=== PATIENT | male | born 1975 | race Caucasian/White ===

== ENCOUNTER 2021-06-10 10:46 | Emergency (ER) | payer OTHER, SELFPAY ==
--- NOTE | ~2021-06-10 | XR_ITS ---
XR wrist RT min 3V DATE: 06/10/2021 11:15 INDICATION: Punched wall. Right hand pain TECHNIQUE: 4 views COMPARISON: 06/10/2021 right hand FINDINGS: Lucency is noted at the medial aspect of the hamate bone. Fracture is not excluded. Cannot exclude subluxation or dislocation of the fifth carpometacarpal joint. CT evaluation of the right wri st is recommended for more definitive evaluation. IMPRESSION: CT) examination is recommended with particular attention to the hamate bone and base of t he proximal phalanx of fifth bone to evaluate for fracture and/or dislocation Reviewed, dictated and finalized at [facility]. Reviewed, dictated and finalized at location A. IMPRESSION: CT) examination is recommended with particular attention to the ham ate bone and base of the proximal phalanx of fifth bone to evaluate for fractur e and/or dislocation
--- NOTE | ~2021-06-10 | XR_ITS ---
XR hand RT min 3V DATE: 06/10/2021 11:01 INDICATION: Punched wall. Right hand pain and swelling. TECHNIQUE: 3 views COMPARISON: None FINDINGS: There is suggestion of fracture of the hamate bone and/or base of the fifth metacarpal bone . 4 view right wrist radiographic examination is recommended. No other fracture is evident. IMPRESSION: Suggestion of fracture involving the hamate bone and/or base of the fifth metacarpal bone Reviewed, dictated and finalized at location A.
--- NOTE | 2021-06-10 10:54 | ED.UPPEXIN ---
HPI - Extremity Injury (Upper) General Chief Complaint: Extremity Injury, Upper Stated Complaint: rt hand injury History of Present Illness HPI narrative: This a 45 year old Iranian that come in today because last night he punched a wall and his right hand is hurting and he want to make sure that it is not broken. Patient states that he palm of his hand began to swell today and even though he feel no moveable bone. Related Data Allergies Allergy/AdvReac Type Severity Reaction Status Date / Time cat dander Allergy Unknown Asthma Verified 11/21/17 21:20 grass pollen Allergy Unknown Asthma Verified 11/21/17 21:20 mold Allergy Unknown Asthma Verified 11/21/17 21:20 oak Allergy Unknown Asthma Verified 11/21/17 21:20 Penicillins Allergy Unknown Verified 11/21/17 21:20 potassium chloride Allergy Unknown Asthma Verified 11/21/17 21:20 Sulfa (Sulfonamide Allergy Unknown assumed Verified 11/21/17 21:20 Antibiotics) because of fam hx Review of Systems Review of Systems: Narrative: CONSTITUTIONAL: Denies fever, chills, or sweats. EYES: Denies visual changes, redness, or discharge. ENT: Denies rhinorrhea, congestion, sore throat, or otalgia. CARDIOVASCULAR:Denies chest pain, palpitations, or edema. RESPIRATORY: Denies cough or dyspnea. GASTROINTESTINAL: Denies abdominal pain, nausea, vomiting, or diarrhea. GENITOURINARY: Denies dysuria or hematuria. SKIN:[Denies rash or itching. MUSCULOSKELETAL:Denies back pain, joint pain, or myalgia. right hand pain with swelling and and abrasion. NEUROLOGIC: Denies headache, numbness, or weakness. PSYCHIATRIC:Denies anxiety or depression [facility] Past Medical History Medical History (Updated 06/10/21 @ 11:20 by Minnie Chung NP) Abnormal results of liver function studies (12/09/18) Asthma, mild intermittent Bruxism (teeth grinding) Chondromalacia of patella, left Family History Family History Father Family history of osteoporosis Family history of heart disease in male family member before age 55 Mother Family history of irritable bowel syndrome Family history of seizure disorder Social History Social History Smoking status: Never smoker Alcohol intake: current Comments At time as signature, I have reviewed and agree with nursing past medical, social, surgical and family history. Please see nursing chart for further information. There is no relevant family history pertinent to the presenting complaint. Exam Narrative: Exam Narrative: GENERAL:Well-appearing, well-nourished, and in no acute distress. HEAD:Normocephalic, atraumatic. EYES: PERRLA and EOMI. ENT: Nares clear, no rhinorrhea or epistaxis. Mucous membranes moist. NECK: Supple. CHEST: Clear to auscultation. No respiratory distress. HEART: Regular rate and rhythm. No murmur heard. Normal peripheral pulses. ABDOMEN: Soft, nontender, nondistended, normal active bowel sounds. EXTREMITIES: decreased range of motion due to pain. Palmar right hand swelling edema with some bruising noted abrasion on bilateral hands . SKIN: Warm, dry, no rash. NEURO: No focal deficits. Alert and oriented x3. Course [employer] Physician Supervision Patient returned and had a OCL placed on hand until he is able to see Ortho Vital Signs Vital signs: Vital Signs Temperature 98.6 F 06/10/21 11:01 Pulse Rate 88 06/10/21 11:01 Respiratory Rate 16 06/10/21 11:01 Blood Pressure 137/90 06/10/21 11:01 Pulse Oximetry 99 06/10/21 11:01 Temperature 98.6 F 06/10/21 11:01 Pulse Rate 88 06/10/21 11:01 Respiratory Rate 16 06/10/21 11:01 Blood Pressure 137/90 06/10/21 11:01 Pulse Oximetry 99 06/10/21 11:01 MDM - Extremity Injury (Upper) Differential Diagnosis Differential diagnosis: Likely sprain and strain of wrist, fracture of wrist, dislocation of finger and fracture of hand
[2021-06-10 11:01] VITALS: BP 137/90; PULSE 88; RESP 16; TEMP 37; O2SAT 99
== END 2021-06-10 11:52 | disposition home or self-care (01) ==
PROVIDERS: Emergency Provider Nurse Practitioner Family; PCP Family Medicine
DX: S62.144A Nondisplaced fracture of body of hamate [unciform] bone, right wrist, initial encounter for closed fracture (principal); S62.306A Unspecified fracture of fifth metacarpal bone, right hand, initial encounter for closed fracture; W22.8XXA Striking against or struck by other objects, initial encounter; J45.909 Unspecified asthma, uncomplicated; M22.42 Chondromalacia patellae, left knee
CPT/HCPCS: 29125; 73110; 73130; 99213; 99214; G0463

== ENCOUNTER → 2021-09-05 08:19 | Outpatient (CLI) | payer OTHER, SELFPAY ==
--- NOTE | ~2021-09-05 | XR_ITS ---
EXAMINATION: XR wrist RT min 3V DATE: 09/05/2021 08:32 INDICATION: Right wrist pain TECHNIQUE: Posteroanterior, ulnar deviation, oblique, and lateral views of the right wrist were obtai alisha. COMPARISON: 06/10/2021 FINDINGS: Interval internal fixation of a fracture of the hamate with 3 compression screws. One of the compress ion screw appears appropriately positioned extending from the dorsal aspect of the body of the hamate palmarly into the hook of the hamate. There are 2 additional screws which appear to extend into the soft tissues ulnar to the hook of the hamate. There is significant lucency surrounding the heads of o ne of the screws which is likely loose. The fracture plane extending across the base of the hamate wh ich can be seen on outside institution CT is not clearly visualized on the current or prior radiograp hs precluding assessment for any interval healing. Alignment appears to remain near anatomic. No othe r fractures identified. Joint spaces are normal. IMPRESSION: 1. 3 fixation screws at the hamate as detailed above, one of which appear to span the previously note d fracture across the base of the hamate. Unable to assess for change of interval healing which could be further evaluated with CT as clinically indicated. Reviewed, dictated and finalized at location A. IMPRESSION: 1. 3 fixation screws at the hamate as detailed above, one of which appear to sp an the previously noted fracture across the base of the hamate. Unable to asses s for change of interval healing which could be further evaluated with CT as cl inically indicated.
== END ==
PROVIDERS: PCP Family Medicine; Visit Provider Plastic Surgery
DX: S62.141A Displaced fracture of body of hamate [unciform] bone, right wrist, initial encounter for closed fracture (principal)
CPT/HCPCS: 73110

== ENCOUNTER 2021-09-20 01:19 | Day surgery (SDC) | payer OTHER, SELFPAY ==
[2021-09-11 08:27] VITALS: BMI 20.5
[2021-09-20] VITALS (7 sets, daily range): BP systolic 116–132; BP diastolic 72–95; PULSE 57–85; RESP 12–18; TEMP 36.6–37.1; O2SAT 98–100
--- NOTE | ~2021-09-20 | XR_ITS ---
EXAMINATION: XR surgery orthopedic DATE: 09/20/2021 13:15 INDICATION: Removal of displaced fixation screw at the right hamate. TECHNIQUE: 5 fluoroscopic images of the right hand were obtained during procedure performed by Dr. Mccloud. Radiologist was not present for the imaging or procedure. The amount of fluoroscopy time used du ring this procedure was 0.5 minutes. COMPARISON: None. FINDINGS: There are 2 fixation screws at the hamate both which demonstrate a similar course as on the prior deisy dy and are likely unchanged. There is residual lucency at the site of a third screw which has been re moved, previously located at the proximal/ulnar aspect of the hamate. Alignment appears normal. No ne w fractures identified. Joint spaces are normal. IMPRESSION: 1. Fluoroscopy was utilized during removal of one of 3 fixation screws at the hamate. See procedure n ote for further detail. Reviewed, dictated and finalized at location A. IMPRESSION: 1. Fluoroscopy was utilized during removal of one of 3 fixation screws at the h amate. See procedure note for further detail.
--- NOTE | 2021-09-20 07:20 | WPDHPUPDATE1 ---
History and Physical Update Update Date/Time: 09/20/21 07:20 History and Physical has been reviewed, including an updated exam of the patient. There are NO changes in the patient's condition. Risks, benefits, and alternatives have been discussed and questions answered. Patient agrees to proceed with procedure.
--- NOTE | 2021-09-20 10:38 | WPDANESEPPF ---
Anes - Initial Pre Proc Eval Procedure: Operation Date: 09/20/21 12:30 Proposed Procedures p Removal Displaced Headless Screw Right Hamate - Sher Cook MD Date/Time: 09/20/21 10:38 Surgeon: Sher Cook MD Pre Op Diagnosis: right hamate fx Patient Data Age: 45 Gender: M Height: 1.73 m Weight: 61.24 kg Allergies Allergy/AdvReac Type Severity Reaction Status Date / Time cat dander Allergy Unknown Asthma Verified 09/11/21 08:25 grass pollen Allergy Unknown Asthma Verified 09/11/21 08:25 mold Allergy Unknown Asthma Verified 09/11/21 08:25 oak Allergy Unknown Asthma Verified 09/11/21 08:25 Penicillins Allergy Unknown Rash Verified 09/11/21 08:25 potassium chloride Allergy Unknown Asthma Verified 09/11/21 08:25 Sulfa (Sulfonamide Allergy Unknown assumed Verified 09/11/21 08:25 Antibiotics) because of fam hx Home Medications Medication Instructions Recorded Confirmed Type buspirone 5 mg tablet See Rx Instructions .ROUTE 06/05/21 09/11/21 Rx .COMPLEX #270 tablet bupropion HCl 150 mg PO DAILY 09/11/21 09/11/21 History vitamin B complex [B Complex] 1 tablet PO DAILY 09/11/21 09/11/21 History Patient hx anesthesia problems: none Family hx anesthesia problems: none Results Review: All pre-operative results and documents have been reviewed as part of the pre-operative evaluation. [facility] Past Medical History Medical History Abnormal results of liver function studies (12/09/18) Asthma, mild intermittent Bruxism (teeth grinding) Chondromalacia of patella, left Surgical History Surgical History (Updated 09/20/21 @ 10:38 by Timmy Thomas MD) H/O hand surgery Family History Family History Father Family history of osteoporosis Family history of heart disease in male family member before age 55 Mother Family history of irritable bowel syndrome Family history of seizure disorder Social History Social History Smoking status: Never smoker Alcohol intake: current Drinks per week: 10 Substance use: never Substance use type: does not use Living arrangements: with family Spiritual care concerns: No Anes - Eval Final PreProcedure Day of Procedure 09/20/21 10:38 Patient weight: normal Heart: regular rate and rhythm Lungs: clear to auscultation Airway: Mallampati scale class II Neurological: alert and oriented Last oral intake: >/= 8 hours ASA classification: II Emergent: no Anesthetic plan: proceed Anesthesia type and monitoring: general GIVS and standard monitoring Results Review: All pre-operative results and documents have been reviewed as part of the pre-operative evaluation. Informed Consent: The patient's anesthetic plan and its attendant risks and benefits were discussed with the patient/family/POA. Questions were solicited and answers provided to the satisfaction of the patient/family/POA.
[2021-09-20] MEDS: LACTATED RINGERS 1,000 ML 30 ML IV CONT ×2 (11:32→13:33)
--- NOTE | 2021-09-20 11:35 | SUR.PREOP ---
md chris said no antibiotic was needed for this procedure
[2021-09-20] MEDS: LIDO 1%/EPINEPHRINE/PF 1:200,000 30 ML VIAL XX (13:13)
[2021-09-20] MEDS: fentaNYL CITRATE INJ (*CRX) 100 MCG/2 ML VIAL 25 MCG IV PUSH ×4 (13:51→14:29)
--- NOTE | 2021-09-20 13:51 | W.PM.PROC2 ---
Procedure Note - Detailed Date of Procedure 09/20/21 Pre-op Diagnosis right hamate fx Post-op Diagnosis same Procedure Performed Removal of displaced fixation screw of right hamate. Surgeon Sher Cook MD Anesthesia MAC and local Indications Pain Findings Displaced headless screw Description of Procedure The patient's hand was marked on the appropriate side, this included the existing scar on the dorsal aspect and an estimated position on the palmar aspect in case a secondary incision were needed. He was taken to the operating room and placed supine operating table. A time-out was held and confirmed. Extremity was prepped and draped in usual fashion as he was given IV sedation. The existing scar was marked for incision and locally infiltrated with 1% lidocaine with epinephrine. The tourniquet was inflated to 250 mmHg. The incision was made as marked turned. Sensory nerves were retracted out of the way as we passed through the subcutaneous tissue. The small finger extensor was retracted. The appropriate site for the capsular incision was identified by positioning a 25 gauge needle and imaging with the C-arm. We were able to pass the needle directly into the cannulated screw. The capsular incision was made and dissected to the bony fenestration. At that point the screw head was confirmed to be several mm deep. The screwdriver was passed over a C-wire that had been passed down the cannulated screw. We were not able to get purchase on the head by that approach. We were able to palpate the pin position from the palmar side. That site was marked and infiltrated with 1% lidocaine with epinephrine. A 2.5 cm incision was made. Blunt dissection revealed the C-wire and the distal end of the screw. I was able to grasp that screw with a needle rey and retrieve it with little force and some rotation. The palmar wound was closed with interrupted 5 0 nylon. The dorsal wound was closed in layers with 3-0 Vicryl to approximate the capsular tissue and the skin was then closed with a running 5 0 nylon. A soft bulky bandage allowing digital range of motion was applied. No additional anesthetic was given. Patient is discharged home with instructions in wound care and follow-up and a prescription for hydrocodone 5/325 8. Estimated Blood Loss 0 Drains No Packing No Pathology none sent Complications No immediate complications Condition stable Disposition PACU
[2021-09-20] MEDS: oxyCODONE HCL (*CRX) 5 MG TAB IR PO (14:31)
== END 2021-09-20 15:12 | disposition home or self-care (01) ==
PROVIDERS: PCP Family Medicine; Visit Provider Plastic Surgery
PROC: (CPT 20694; principal; 2021-09-20 12:30)
DX: T84.210A Breakdown (mechanical) of internal fixation device of bones of hand and fingers, initial encounter (principal); S62.141D Displaced fracture of body of hamate [unciform] bone, right wrist, subsequent encounter for fracture with routine healing; Y83.8 Other surgical procedures as the cause of abnormal reaction of the patient, or of later complication, without mention of misadventure at the time of the procedure; J45.20 Mild intermittent asthma, uncomplicated
CPT/HCPCS: 20680; A9270; J2250; J2704; J3010; J7120

== ENCOUNTER → 2021-11-13 02:25 | Outpatient (CLI) | payer OTHER, SELFPAY ==
[2021-11-14 13:33] LABS: SARS-CoV-2 RNA PCR Negative
== END ==
PROVIDERS: PCP Family Medicine; Visit Provider Physician Assistant Medical
DX: Z20.822 Contact with and (suspected) exposure to COVID-19 (principal)
CPT/HCPCS: C9803; U0003; U0005

== ENCOUNTER 2022-03-08 11:03 | Outpatient (CLI) | payer OTHER, SELFPAY ==
--- NOTE | ~2022-03-08 | XR_ITS ---
EXAMINATION: XR wrist RT min 3V DATE: 03/08/2022 11:24 INDICATION: One half and removal of single fixation device at the right wrist. TECHNIQUE: Posteroanterior, ulnar deviation, oblique, and lateral views of the right wrist were obtai alisha. COMPARISON: 09/05/2021 and 09/20/2021 FINDINGS: There is a residual lucency at the site of a prior fixation screw at the ulnar side of the hamate whi ch was removed at the time of prior imaging on 09/20/2021. There are 2 additional unchanged fixation s crews in the region of the hook of the hamate with no abnormal lucency surrounding the screws. Bone a lignment is normal. No fracture. Bone island at the lunate. Joint spaces are normal. Soft tissues are unremarkable. IMPRESSION: 1. Stable appearance of a couple residual fixation screws at the hamate. No acute osseous abnormality . Reviewed, dictated and finalized at location A. IMPRESSION: 1. Stable appearance of a couple residual fixation screws at the hamate. No acu te osseous abnormality.
== END 2022-03-08 11:04 | disposition home or self-care (01) ==
LOC: ANHIMG 11:06
PROVIDERS: PCP Family Medicine; Visit Provider Plastic Surgery
DX: S62.141D Displaced fracture of body of hamate [unciform] bone, right wrist, subsequent encounter for fracture with routine healing (principal)
CPT/HCPCS: 73110

== ENCOUNTER → 2022-07-17 11:07 | Outpatient (CLI) | payer OTHER, SELFPAY ==
--- NOTE | ~2022-07-17 | XR_ITS ---
EXAMINATION: XR hip LT 2V w AP pelvis INDICATION: Left hip pain TECHNIQUE: AP view the pelvis and three views of the left hip are obtained. COMPARISON: None available FINDINGS: Bone alignment is normal. There is no fracture. A phlebolith is noted in the left pelvis. T he soft tissues are otherwise unremarkable. IMPRESSION: 1. No acute osseous abnormality. Reviewed, dictated and finalized at location A.
--- NOTE | ~2022-07-17 | XR_ITS ---
EXAMINATION: XR lumbar spine min 4V DATE: 07/17/2022 11:30 INDICATION: Left hip pain TECHNIQUE: Anteroposterior, lateral, and bilateral oblique views of the lumbar spine, and cone-down l ateral view of the lumbosacral junction were obtained. COMPARISON: None. FINDINGS: Bone alignment is normal. There is no fracture. There is mild loss of intervertebral disc s pace height at L5-S1. The vertebral body heights are maintained. IMPRESSION: 1. Mild lumbar spondylosis without acute findings. Reviewed, dictated and finalized at location A.
== END ==
PROVIDERS: PCP Family Medicine; Visit Provider Family Medicine
DX: M25.552 Pain in left hip (principal); M47.816 Spondylosis without myelopathy or radiculopathy, lumbar region
CPT/HCPCS: 72110; 73502

== ENCOUNTER 2022-08-16 07:31 | Outpatient (CLI) | payer OTHER, SELFPAY ==
--- NOTE | ~2022-08-16 | MR_ITS ---
. EXAMINATION: MR lumbar spine wo con DATE: 08/16/2022 08:03 INDICATION: Low back pain. Left hip and leg pain and tingling. TECHNIQUE: Magnetic resonance imaging (MRI) of the lumbar spine was performed without intravenous con trast. Sequences included sagittal T2-weighted FSE, sagittal T2-weighted FS FSE, sagittal T1-weighted FSE, and axial T2-weighted FSE. COMPARISON: Lumbar spine radiographs 07/17/22 FINDINGS: There is 5 degrees dextrocurvature of thoracolumbar spine. Vertebral body heights are roxanne l. There is a hemangioma in L1 vertebral body. There is moderately decreased disc height at L5-S1. Th e distal spinal cord signal intensity is normal. The conus medullaris is at T12-L1. The following dis c levels are specifically discussed: L1-L2: The disc does not extend beyond the endplate margin. There is no facet joint osteoarthritis. T here is no neural foraminal stenosis. There is no central canal stenosis. L2-L3: The disc does not extend beyond the endplate margin. There is no facet joint osteoarthritis. T here is no neural foraminal stenosis. There is no central canal stenosis. L3-L4: The disc does not extend beyond the endplate margin. There is no facet joint osteoarthritis. T here is no neural foraminal stenosis. There is no central canal stenosis. L4-L5: The disc is bulging and has an annular fissure. There is no facet joint osteoarthritis. There is mild bilateral neural foraminal stenosis. There is mild central canal stenosis. L5-S1: The disc is bulging and has a central extrusion. There is mild right facet joint osteoarthriti s. There is mild bilateral neural foraminal stenosis. There is mild central canal stenosis. IMPRESSION: 1. Moderate lower lumbar spondylosis. Reviewed, dictated and finalized at location A.
== END 2022-08-16 07:32 ==
LOC: MICIMG 07:32
PROVIDERS: PCP Family Medicine; Visit Provider Family Medicine
DX: M25.552 Pain in left hip (principal); M47.816 Spondylosis without myelopathy or radiculopathy, lumbar region
CPT/HCPCS: 72148

== ENCOUNTER 2024-11-08 08:43 | Outpatient (CLI) | payer OTHER, SELFPAY ==
--- NOTE | ~2024-11-08 | CT_ITS ---
EXAMINATION: CT abdomen pelvis wo con DATE: 11/08/2024 08:56 INDICATION: Abdominal pain TECHNIQUE: Computed tomography (CT) of the abdomen and pelvis was performed without intravenous contr ast. Automated exposure control and iterative reconstruction technique were employed. The dose-length product was 262.56 mGy-cm. COMPARISON: 03/12/11 FINDINGS: Lung bases are clear. Small fat-containing Bochdalek hernia at the posterior left lung base. This is inferior heart is normal. No pericardial or pleural effusion. Liver, gallbladder, spleen, pancreas, b ilateral adrenal glands and kidneys are normal. Normal retrocecal appendix. No abnormal bowel wall th ickening or obstruction. Bladder is normal. No free intraperitoneal gas or fluid. No pathologically e nlarged abdominal or pelvic lymphadenopathy. Mild lumbar spondylosis. IMPRESSION: 1. No acute intra-abdominal/pelvic process. Reviewed, dictated and finalized at location B. [employer]
== END 2024-11-08 08:44 | disposition home or self-care (01) ==
LOC: MICIMG 08:43
PROVIDERS: PCP Family Medicine; Visit Provider Family Medicine
DX: R10.9 Unspecified abdominal pain (principal); R19.4 Change in bowel habit
CPT/HCPCS: 74176

== ENCOUNTER 2024-11-17 09:08 | Emergency (ER) | payer OTHER, SELFPAY ==
--- NOTE | 2024-11-17 09:28 | ED_ITS ---
HPI - URI/Sore Throat General Chief Complaint: Upper Respiratory Infection Stated Complaint: COUGH/FEVER Time Seen by Provider: 11/17/24 09:30 Source: patient, RN notes reviewed and old records reviewed Mode of arrival: ambulatory Limitations: no limitations History of Present Illness HPI Narrative: 48 year old male presents to [facility] care with over 1 week duration of cough, sinus congestion, headache. Patient reports that yesterday he has had increased mucus production, cough has become loose and he has been running a low-grade temp. Patient has taken Mucinex and Sudafed for his symptoms without improvem ent. MD elicited complaint: fever, cough, rhinorrhea and nasal congestion Pertinent past history: asthma and seasonal allergies Onset (ago): week(s) (greater than one week) Severity: moderate Able to tolerate fluids by mouth: Yes Treatments prior to arrival: other (Mucinex sudafed) Related Data Home Medications ?Medication ?Instructions ?Recorded ?Confirmed ?Last Taken ?Type vitamin B complex 1 tablet PO DAILY 09/11/21 10/20/24 Unknown History Allergies Allergy/AdvReac Type Severity Reaction Status Date / Time cat dander Allergy Unknown Asthma Verified 11/17/24 09:22 grass pollen Allergy Unknown Asthma Verified 11/17/24 09:22 mold Allergy Unknown Asthma Verified 11/17/24 09:22 oak Allergy Unknown Asthma Verified 11/17/24 09:22 Penicillins Allergy Unknown Rash Verified 11/17/24 09:22 potassium chloride Allergy Unknown Asthma Verified 11/17/24 09:22 Sulfa (Sulfonamide Allergy Unknown assumed Verified 11/17/24 09:22 Antibiotics) because of fam hx Review of Systems Review of Systems: CONSTITUTIONAL: Reports malaise, chills, sweats, or fever. EYES: Denies visual changes, redness, or discharge. ENT: Reports rhinorrhea, congestion, sinus pain, no otalgia and some sore throat. CARDIOVASCULAR: Denies chest pain, palpitations, or edema. RESPIRATORY: Reports increased cough.? Denies dyspnea. GASTROINTESTINAL: Denies abdominal pain, nausea, vomiting, diarrhea SKIN: Denies rash or itching. MUSCULOSKELETAL: Denies myalgia. NEUROLOGIC:reports headache. All systems reviewed & are unremarkable except as noted in HPI and below PMFSH Past Medical History Medical History Abnormal results of liver function studies (12/09/18) Asthma, mild intermittent Bruxism (teeth grinding) Chondromalacia of patella, left Surgical History Surgical History H/O hand surgery Family History Family History Father Family history of osteoporosis Family history of heart disease in male family member before age 55 Mother Family history of irritable bowel syndrome Family history of seizure disorder Social History Social History Smoking status: Never smoker Alcohol intake: current Drinks per week: 10 Alcohol use details: still continuing to cut back. Substance use: current Substance use type: marijuana Other substance usage details: uses gummies occaisonally Last use: been about a year since last use Do You Feel Safe in your Home?: Yes Lack of Transportation: No Lack of Food: Never True Current Housing: I Have Housing Concerned About Future Housing: No Difficulty Paying Gas/Electric Bills: No Difficulty Paying for Meds: No Currently Unemployed: No Education: High School Diploma/GED Difficulty w/ Childcare or Family Care: No Living arrangements: with family Gender identity (if verbalized by the patient): Male Sexual Orientation (if Verbalized by the Patient): Straight or Heterosexual Spiritual care concerns: No Comments At time of signature, agree with nursing past medical, surgical, social and family history. There is no relevant family history pertinent to the presenting complaint Exam Narrative: GENERAL:Ill-appearing, well-nourished, and in no acute distress. HEAD: Normocephalic EYES: PERRLA, conjunctivae clear ENT: Nares clear, turbinates edematous and erythematous, clear discharge, sinus pressure and headache. Mucous membranes moist. TM pearly her with dull light reflex bilaterally; no tragal tenderness. Oropharynx erythematous without lesions. Tonsils not enlarged and without exudate, no drooling, no hoarseness, no trismus, uvula midline.positive for increased sinus drainage NECK: Supple. No lymphadenopathy CHEST: Clear to auscultation, breath sounds equal. No wheezing, rhonchi, rales, or stridor. No respiratory distress, speaks in full sentences.cough, SAO2 100% on room air HEART: Regular rate and rhythm. No murmur heard. SKIN: Warm, dry, no rash. NEURO: Alert and oriented x3. PSYCH: Normal mood and affect Course Course Emergency Course: Patient is aware of diagnosis, understands and agrees to treatment plan.? Anticipatory guidance given.? Patient agrees to follow-up as directed and is aware of reasons to seek care at the emergency department. Portions of this record may have been created with voice recognition software Level of Care: Express Care Visit Vital Signs Vital signs: Vital Signs Oxygen Delivery Room Air 11/17/24 09:23 Oxygen Delivery Room Air 11/17/24 09:23 Reviewed MDM - URI/Sore Throat MDM Narrative Medical decision making narrative: Differential diagnosis considered: Catalan virus, strep pharyngitis, allergic rhinitis, upper respiratory tract infection, sinusitis, rhinosinusitis, nasopharyngitis. viral pharyngitis, otitis media, otitis externa, pneumonia, bronchitis, viral cough syndrome, viral syndrome, and influenza.? Exam findings show no acute concerns or changes; patient is non-toxic appearing and is in no distress.? Patient is appropriate for outpatient treatment and follow-up. Differential Diagnosis Differential diagnosis: Likely upper respiratory infection, viral infection, influenza, pharyngitis and other (strep pharyngitis, COVID) Medical Records Attestation: I reviewed the patient's medical records. Lab Data Attestation: I reviewed the patient's lab results. Lab results narrative: influenza a negative influenza B negative, COVID antigen negative, strep screen negative strep culture sent Critical Care Time Critical Care Time Critical Care Time: No Discharge Plan Discharge Clinical Impression: Acute cough Sinusitis Qualifiers: Sinusitis location: pansinusitis Chronicity: acute Recurrence: not specified as recurrent Qualified Code(s): J01.40 - Acute pansinusitis, unspecified Patient Disposition: Home, Self-Care Condition: Stable Instructions: Antibiotic Form, Sinusitis (ED), Acute Cough (ED) Additional Instructions: Increase fluids especially juices and water Bhrq-kth-qzyrhil cough and cold medicine of your choice for your symptoms Zyrtec Claritin or Shell daily recommend Coricidin decongestants since you have elevation of blood pressure Steroids as directed--take with food heat to the face 20-30 minutes 4-6 times a day for pain Salt water gargles, throat lozenges or throat sprays as desired Antibiotic as directed--finished the medication Tylenol or ibuprofen for any fever pain If your symptoms persist, change or worsen significantly before you can contact your personal physician then please, without delay, go to the emergency department for further evaluation. Follow-up with PCP in 7-10 days or sooner if needed Follow up with PCP soon in regards to your blood pressure which is elevated above threshold for referral. Blood pressure above 120/80 may indicate pre- hypertension.141/91 Patient Language: Tamazight Prescriptions: New azithromycin 250 mg tablet See Rx Instructions .ROUTE .COMPLEX Qty: 6 0RF Rx Instructions: For 250 mg dose pack: take 500 mg today (day 1), then 250 mg for 4 days (days 2-5) prednisone 50 mg tablet 50 mg PO DAILY Qty: 5 0RF Rx Instructions: take with food No Action buspirone 5 mg tablet See Rx Instructions PO .COMPLEX Qty: 450 3RF Rx Instructions: 2 po q a.m., 1 po q midday, 2 po q p.m. orally vitamin B complex Tablet Extended Release 1 tablet PO DAILY bupropion HCl 150 mg tablet extended release 24 hr See Rx Instructions .ROUTE .COMPLEX Qty: 90 3RF Dose Instruction: TAKE 1 TABLET BY MOUTH DAILY Rx Instructions: TAKE 1 TABLET BY MOUTH DAILY bupropion HCl 150 mg tablet extended release 24 hr 150 mg PO QAM Qty: 30 0RF Follow-up/Referrals: Missy Bass MD [Primary Care Provider] - Stand Alone Forms: Work/School Release IP Time of Disposition: 09:48 Quality [place] Coma Scale Eyes: Open Verbal: Oriented and Alert Motor: Follows Commands Zi Coma Total Score: 15
[2024-11-17 09:37] VITALS: BP 141/91; PULSE 91; RESP 16; TEMP 37; O2SAT 100
[2024-11-17 09:40] LABS: EDCOVIDSCREEN Negative (Negative); EDINFLUASCREEN Negative (Negative); EDINFLUBSCREEN Negative (Negative); EDSTREPNEGPOS1 Negative (Negative)
== END 2024-11-17 10:04 | disposition home or self-care (01) ==
PROVIDERS: Emergency Provider Registered Nurse; PCP Family Medicine
DX: J01.40 Acute pansinusitis, unspecified (principal); R05.1 Acute cough; Z20.822 Contact with and (suspected) exposure to COVID-19
CPT/HCPCS: 87081; 87426; 87804; 87880; 99213; G0463

== ENCOUNTER 2025-04-04 07:22 | Day surgery (SDC) | payer OTHER, SELFPAY ==
[2024-11-01 13:19] VITALS: BMI 21.9
[2025-03-21 10:51] VITALS: BMI 20.4
--- NOTE | 2025-04-04 06:58 | P.PNAN_ITS ---
Anes - Initial Pre Proc Eval Procedure: Operation Date: 04/04/25 09:30 Proposed Procedures p Screening Colonoscopy - Kayden Tran MD Date/Time: 04/04/25 06:58 Surgeon: Kayden Tran MD Pre Op Diagnosis: Screening neoplasm of the colon Patient Data Age: 49 Gender: M Height: 1.73 m Weight: 61 kg Allergies Allergy/AdvReac Type Severity Reaction Status Date / Time Penicillins Allergy Unknown Rash Verified 04/04/25 08:24 Sulfa (Sulfonamide Allergy Unknown assumed Verified 04/04/25 08:24 Antibiotics) because of fam hx Home Medications Medication Instructions Recorded Confirmed Type vitamin B complex 1 tablet PO DAILY 09/11/21 04/04/25 History buspirone 5 mg tablet See Rx Instructions PO .COMPLEX 07/15/24 04/04/25 Rx #450 tabs bupropion HCl 150 mg 24 hr tablet, See Rx Instructions .Route 07/26/24 04/04/25 Rx extended release .COMPLEX #90 tabs Patient hx anesthesia problems: none Family hx anesthesia problems: none Results Review: All pre-operative results and documents have been reviewed as part of the pre- operative evaluation. [facility] Past Medical History Medical History (Updated 04/04/25 @ 06:58 by Natanael Barajas DO) Attention deficit disorder predominant inattentive type Chronic depression Abnormal results of liver function studies (12/09/18) Asthma, mild intermittent Bruxism (teeth grinding) Chondromalacia of patella, left Surgical History Surgical History H/O hand surgery Family History Family History Father Family history of osteoporosis Family history of heart disease in male family member before age 55 Mother Family history of irritable bowel syndrome Family history of seizure disorder Social History Social History (Updated 04/04/25 @ 08:43 by Natanael Barajas DO) Smoking status: Never smoker Alcohol intake: current Drinks per week: 10 Alcohol use details: 2-4/day Substance use: never Substance use type: does not use Other substance usage details: uses gummies occaisonally Last use: been about a year since last use Do You Feel Safe in your Home?: Yes Lack of Transportation: No Lack of Food: Never True Current Housing: I Have Housing Concerned About Future Housing: No Difficulty Paying Gas/Electric Bills: No Difficulty Paying for Meds: No Currently Unemployed: No Education: High School Diploma/GED Difficulty w/ Childcare or Family Care: No Living arrangements: with family Gender identity (if verbalized by the patient): Male Sexual Orientation (if Verbalized by the Patient): Straight or Heterosexual Spiritual care concerns: No Anes - Eval Final PreProcedure Day of Procedure 04/04/25 06:58 Patient weight: normal Heart: regular rate and rhythm Lungs: clear to auscultation and normal air movement Airway: Mallampati scale class II Neurological: alert and oriented Last oral intake: >/= 8 hours ASA classification: III Emergent: no Anesthetic plan: proceed Anesthesia type and monitoring: general GIVS and standard monitoring Results Review: All pre-operative results and documents have been reviewed as part of the pre- operative evaluation. Informed Consent: The patient's anesthetic plan and its attendant risks and benefits were discu ssed with the patient/family/POA. Questions were solicited and answers provided to the satisfaction of the patient/family/POA.
--- OUTSIDE RECORDS SUMMARY | 2025-04-04 08:14 | XMS_ITS | Clinical Summary ---
Author Organization [facility] Address [address] [place] [address] Care Team Providers Care Prenatal Teacher Name Role Phone No, Physician Primary Care Provider [phone] Allergies Active Allergy Reactions Criticality Noted Date Comments Mold Other (See comments) Low 06/12/2021 Asthma Penicillins Rash Medium 06/12/2021 Mild rash as a child, no respiratory symptoms Potassium Chloride Other (See comments) Low 06/12/2021 Asthma Sulfa (Sulfonamide Antibiotics) Other (See comments) Low 06/12/2021 Assumed because of history of fam hx, per sven Eastman in [place] Medications buPROPion XL (WELLBUTRIN XL) 150 mg 24 hr tablet Take 1 tablet (150 mg total) by mouth daily Active busPIRone (BUSPAR) 5 mg tablet Take 1 tablet (5 mg total) by mouth 3 (three) times a day 06/06/2021 Active Active Problems Problem Noted Date Diagnosed Date Closed displaced fracture of capitate bone of ri ght wrist 10/08/2024 Closed nondisplaced fracture of base of fourth metacarpal bone of right hand 10/08/2024 Closed displaced fracture of body of right hamat e bone 06/13/2021 Overview (10/08/2024): Added automatically from request for surgery [id number] Abnormal results of liver function studies 06/12 Overview (10/08/2024): Per JAILYN Saeed since 12/09/18 Bruxism (teeth grinding) 06/12/2021 Chondromalacia of patella, left 06/12/2021 Mild intermittent asthma 06/12/2021 Infectious warts 04/22/2017 Multiple benign melanocytic nevi 04/22/2017 Social History Tobacco Use Types Packs/Day Years Used Date Smoking Tobacco: Never Assessed Sex and Gender Information Value Date Recorded Sex Assigned at Not on file Legal Sex Male 5:26 AM 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 Gender Identity Not on file Sexual Orientation Not on file Last Filed Vital Signs Vital Sign Reading Time Taken Comments Blood Pressure 132/90 10/08/2024 6:13 PM 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 Pulse 86 10/08/2024 6:13 PM 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 Temperature 37.1 C (98.8 F) 10/08/2024 6:13 PM 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 Respiratory Rate 14 10/08/2024 6:13 PM 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 Oxygen Saturation 99% 10/08/2024 6:13 PM 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 Inhaled Oxygen Concentration - - Weight 64.9 kg (143 lb) 10/08/2024 6:13 PM 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 Height 172.7 cm (5' 8 ) 10/08/2024 6:13 PM 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 Body Mass Index 21.74 10/08/2024 6:13 PM 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 Plan of Treatment Health Maintenance Due Date Last Done Comments Colon Cancer Screening-Colonoscopy 1977 Depression Screening 1977 Hepatitis C Screening 1977 DTaP/Tdap/Td Vaccine (1 - Tdap) 1988 Hepatitis B Screening 1995 Regular Well Visit/Exam 18-64 1995 Pneumococcal vaccine <65 (1 of 2 - PCV) 1996 Covid-19 Vaccine ( season) 2024 11/01/2021, 02/02/2021, 01/11/2021 Influenza Vaccine (Season Ended) 2025 10/06/20 20 Insurance EMPLOYEES [employer] EM[employer]YEES Care Teams Prenatal Teacher Relationship Specialty Start Date End Date No, Physician PCP - General 04/20/22
--- OUTSIDE RECORDS SUMMARY | 2025-04-04 08:14 | XMS_ITS | Referral Summary ---
Author Organization [facility] Address [address] [place] [address] Care Team Providers Care Housekeeping Staff Name Role Phone No, Physician Primary Care Provider [phone] Allergies Active Allergy Reactions Criticality Noted Date Comments Mold Other (See comments) Low 06/12/2021 Asthma Penicillins Rash Medium 06/12/2021 Mild rash as a child, no respiratory symptoms Potassium Chloride Other (See comments) Low 06/12/2021 Asthma Sulfa (Sulfonamide Antibiotics) Other (See comments) Low 06/12/2021 Assumed because of history of fam hx, per sven Eastman in [place] Medications buPROPion XL (WELLBUTRIN XL) 150 mg [...] (10/08/2024): Added automatically from request for surgery [id number] Abnormal results of liver function studies 06/12 [...] on file Legal Sex Male 5:26 AM INSPECTOR TOOL Gender Identity Not on file Sexual Orientation Not on file Last Filed Vital Signs Vital Sign Reading Time Taken Comments Blood Pressure 132/90 10/08/2024 6:13 PM INSPECTOR TOOL Pulse 86 10/08/2024 6:13 PM INSPECTOR TOOL Temperature 37.1 C (98.8 F) 10/08/2024 6:13 PM INSPECTOR TOOL Respiratory Rate 14 10/08/2024 6:13 PM INSPECTOR TOOL Oxygen Saturation 99% 10/08/2024 6:13 PM INSPECTOR TOOL Inhaled Oxygen Concentration - - Weight 64.9 kg (143 lb) 10/08/2024 6:13 PM INSPECTOR TOOL Height 172.7 cm (5' 8 ) 10/08/2024 6:13 PM INSPECTOR TOOL Body Mass Index 21.74 10/08/2024 6:13 PM INSPECTOR TOOL Plan of Treatment Not on file Insurance EMPLOYEES [employer] [facility] HMO/PPO Address: [facility] [address] [place] [address] [facility] [employer]YE[employer] [facility] H[employer]/PPO Address: [facility] [address] [place] [address] Care Teams Housekeeping Staff Relationship Specialty Start Date End Date No, Physician PCP - General 04/20/22
[2025-04-04 08:25] VITALS: BP 147/89; PULSE 77; RESP 17; TEMP 36.8; O2SAT 100
[2025-04-04] MEDS: LACTATED RINGERS 1,000 ML 150 ML IV CONT (08:31)
--- NOTE | 2025-04-04 09:39 | PM.IMHP ---
H&P: HPI History of Present Illness Date/Time: 04/04/25 09:39 Chief Complaint: Screening colonoscopy Narrative: This is the patient's first colonoscopy. There are no GI symptoms and there is no family history of colorectal cancer. Review of Systems Review of Systems: All systems reviewed & are unremarkable except as noted in HPI and below PMFSH Past Medical History Medical History (Updated 04/04/25 @ 09:40 by Kayden Tran MD) Attention deficit disorder predominant inattentive type Chronic depression Abnormal results of liver function studies (12/09/18) Asthma, mild intermittent Bruxism (teeth grinding) Chondromalacia of patella, left Surgical History Surgical History H/O hand surgery Family History Family History Father Family history of osteoporosis Family history of heart disease in male family member before age 55 Mother Family history of irritable bowel syndrome Family history of seizure disorder Social History Social History (Updated 04/04/25 @ 08:43 by Natanael Barajas DO) Smoking status: Never smoker Alcohol intake: current Drinks per week: 10 Alcohol use details: 2-4/day Substance use: never Substance use type: does not use Other substance usage details: uses gummies occaisonally Last use: been about a year since last use Do You Feel Safe in your Home?: Yes Lack of Transportation: No Lack of Food: Never True Current Housing: I Have Housing Concerned About Future Housing: No Difficulty Paying Gas/Electric Bills: No Difficulty Paying for Meds: No Currently Unemployed: No Education: High School Diploma/GED Difficulty w/ Childcare or Family Care: No Living arrangements: with family Gender identity (if verbalized by the patient): Male Sexual Orientation (if Verbalized by the Patient): Straight or Heterosexual Spiritual care concerns: No Meds Home Medications and Allergies Home Medications Medication Instructions Recorded Confirmed Type vitamin B complex 1 tablet PO DAILY 09/11/21 04/04/25 History buspirone 5 mg tablet See Rx Instructions PO .COMPLEX 07/15/24 04/04/25 Rx #450 tabs bupropion HCl 150 mg 24 hr tablet, See Rx Instructions .Route 07/26/24 04/04/25 Rx extended release .COMPLEX #90 tabs Allergies Allergy/AdvReac Type Severity Reaction Status Date / Time Penicillins Allergy Unknown Rash Verified 04/04/25 08:24 Sulfa (Sulfonamide Allergy Unknown assumed Verified 04/04/25 08:24 Antibiotics) because of fam hx Vital Signs Vital Signs - 24 hr 04/04/25 08:25 Temperature 98.2 F Pulse Rate 77 Respiratory Rate 17 Blood Pressure 147/89 H Pulse Oximetry 100 Oxygen Delivery Room Air Exam Const: General: cooperative and healthy appearing Resp: Effort & Inspection: normal respiratory effort and able to speak in complete sentences Auscultation: clear to auscultation bilaterally Cardio: Rate: regular rate Rhythm: regular rhythm GI: Inspection: normal to inspection GI Palp: No No hepatosplenomegaly present Auscultation: normal bowel sounds Rectal Exam: deferred Skin: General skin exam: normal color Psych: Appearance: grossly normal Mental Status: mental status grossly normal Assessment and Plan Assessment and plan (1) Encounter for screening colonoscopy: Code(s): Z12.11 - Encounter for screening for malignant neoplasm of colon Status: Acute Assessment and Plan: The patient is deemed a good candidate for the procedure. Consent signed. Will proceed.
[2025-04-04] MEDS: SIMETHICONE ORAL SUSPENSION 20 MG/0.3 ML 30 ML BOTTLE 0.6 ML IRRIGATION (09:56)
[2025-04-04 10:08] VITALS: BP 130/92; PULSE 99; RESP 14; O2SAT 100
[2025-04-04 10:18] VITALS: BP 109/81; PULSE 90; RESP 14; O2SAT 100
[2025-04-04 10:28] VITALS: BP 108/72; PULSE 79; RESP 16; O2SAT 100
--- NOTE | 2025-04-04 13:17 | WPDANESPN ---
Anes - Prog Note Post-Op Date/Time: 04/04/25 13:17 Cardiovascular status: normal Respiratory status: normal Airway patency: baseline Mental status: baseline Post-Op hydration status: normal Vital Signs: Last Vital Signs Temp 36.8 C 04/04/25 08:25 Pulse 79 04/04/25 10:28 Resp 16 04/04/25 10:28 BP 108/72 04/04/25 10:28 Pulse Ox 100 04/04/25 10:28 O2 Del Method Room Air 04/04/25 10:28 Pain Score (VAS): 0 I/O: Intake & Output 04/03/25 04/04/25 04/04/25 23:59 07:59 15:59 Intake Total 250 Balance 250 Post-procedural complaints: none Patient Feedback: Patient satisfied with anesthetic care. Other Findings: Patient vital signs back to baseline. Patient denies nausea and vomiting. Patient's pain under control. Patient OK for discharge.
== END 2025-04-04 10:43 | disposition home or self-care (01) ==
PROVIDERS: PCP Family Medicine; Visit Provider Internal Medicine Gastroenterology
PROC: 0DJD8ZZ Inspection of Lower Intestinal Tract, Via Natural or Artificial Opening Endoscopic (ICD-10-PCS; CPT 45378; principal; 2025-04-04 09:30)
DX: Z12.11 Encounter for screening for malignant neoplasm of colon (principal); D12.2 Benign neoplasm of ascending colon
CPT/HCPCS: 45385

== ENCOUNTER 2025-04-04 08:01 | Outpatient (NON) | payer OTHER, SELFPAY ==
--- OUTSIDE RECORDS SUMMARY | 2025-04-05 08:06 | XMS_ITS | Clinical Summary ---
Author Organization [facility] Address [address] [place] [address] Care Team Providers Care Rayon Coner Name Role Phone No, Physician Primary Care Provider [phone] Allergies Active Allergy Reactions Criticality Noted Date Comments Mold Other (See comments) Low 06/12/2021 Asthma Penicillins Rash Medium 06/12/2021 Mild rash as a child, no respiratory symptoms Potassium Chloride Other (See comments) Low 06/12/2021 Asthma Sulfa (Sulfonamide Antibiotics) Other (See comments) Low 06/12/2021 Assumed because of history of fam hx, per sven Eastman in [place] Medications buPROPion XL (WELLBUTRIN XL) 150 mg [...] (10/08/2024): Added automatically from request for surgery [id number] Abnormal results of liver function studies 06/12 [...] on file Legal Sex Male 5:26 AM 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74 10/08/2024 6:13 PM STERILE TECHNICIAN Plan of Treatment Health Maintenance Due Date Last Done Comments Colon Cancer Screening-Colonoscopy 1977 Depression Screening 1977 Hepatitis C Screening 1977 DTaP/Tdap/Td Vaccine (1 - Tdap) 1988 Hepatitis B Screening 1995 Regular Well Visit/Exam 18-64 1995 Pneumococcal vaccine <65 (1 of 2 - PCV) 1996 Covid-19 Vaccine ( season) 2024 11/01/2021, 02/02/2021, 01/11/2021 Influenza Vaccine (Season Ended) 2025 10/06/20 20 Insurance EMPLOYEES [employer] EMPLOYEES Care Teams Rayon Coner Relationship Specialty Start Date End Date No, Physician PCP - General 04/20/22
--- OUTSIDE RECORDS SUMMARY | 2025-04-05 08:06 | XMS_ITS | Referral Summary ---
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 Name Role Phone No, Physician Primary Care Provider [phone] Allergies Active Allergy Reactions Criticality Noted Date Comments Mold Other (See comments) Low 06/12/2021 Asthma Penicillins Rash Medium 06/12/2021 Mild rash as a child, no respiratory symptoms Potassium Chloride Other (See comments) Low 06/12/2021 Asthma Sulfa (Sulfonamide Antibiotics) Other (See comments) Low 06/12/2021 Assumed because of history of fam hx, per sven [place] in [place] Medications buPROPion XL (WELLBUTRIN XL) 150 mg [...] (10/08/2024): Added automatically from request for surgery [id number] Abnormal results of liver function studies 06/12 [...] on file Legal Sex Male 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 Gender Identity Not on file Sexual Orientation Not on file Last Filed Vital Signs Vital Sign Reading Time Taken Comments Blood Pressure 132/90 10/08/2024 6:13 PM FOUNDER AND CHIEF TECHNICAL OFFICER Pulse 86 10/08/2024 6:13 PM FOUNDER AND CHIEF TECHNICAL OFFICER Temperature 37.1 C (98.8 F) 10/08/2024 6:13 PM FOUNDER AND CHIEF TECHNICAL OFFICER Respiratory Rate 14 10/08/2024 6:13 PM FOUNDER AND CHIEF TECHNICAL OFFICER Oxygen Saturation 99% 10/08/2024 6:13 PM FOUNDER AND CHIEF TECHNICAL OFFICER Inhaled Oxygen Concentration - - Weight 64.9 kg (143 lb) 10/08/2024 6:13 PM FOUNDER AND CHIEF TECHNICAL OFFICER Height 172.7 cm (5' 8 ) 10/08/2024 6:13 PM FOUNDER AND CHIEF TECHNICAL OFFICER Body Mass Index 21.74 10/08/2024 6:13 PM FOUNDER AND CHIEF TECHNICAL OFFICER Plan of Treatment Not on file Insurance [employer] Care Teams Dumb Waiter Operator Relationship Specialty Start Date End Date No, Physician PCP - General 04/20/22
== END 2025-04-04 08:02 | disposition home or self-care (01) ==
LOC: ANHLAB 04-05 08:02
PROVIDERS: PCP Family Medicine; Visit Provider Internal Medicine Gastroenterology
DX: D12.2 Benign neoplasm of ascending colon (principal); Z12.11 Encounter for screening for malignant neoplasm of colon
CPT/HCPCS: 88305